=== PATIENT | male | born 1990 | race Caucasian/White ===

== ENCOUNTER 2021-06-25 07:34 | Outpatient (CLI) | payer OTHER, SELFPAY ==
--- NOTE | 2021-06-25 16:10 | WPDMETH ---
Methacholine Procedure Perform Procedure Performed Methacholine Challenge Methacholine Challenge This is a methacholine challenge test. The test was performed and interpreted in accordance with the 1999 [place] [employer] guidelines. The test was performed with increasing doses of nebulized methacholine using a 2 minute tidal breathing protocol. The best post-methacholine FEV1 values were used to calculate the change from the post diluent FEV1. Findings: Baseline FEV1 4.16 L, 94% predicted. Post diluent FEV1 4.20 L Post 0.025 mg/ml methacholine FEV1 4.28 L, increased 2% Post 0.25 mg/mL methacholine FEV1 4.26 L, increased 1% Post 2.5 mg/mL methacholine FEV1 4.20 L, decreased 0% Post 10 mg/mL methacholine FEV1 4.09 L, decreased 3% Post 25 mg/mL methacholine FEV1 4.14 L, decreased 1% Post albuterol nebulization FEV1 4.20 L Impression: The PC20 is >25 mg/ml which is categorized as normal bronchial responsiveness. There are no prior methacholine challenge studies for comparison
== END 2021-06-25 07:35 | disposition home or self-care (01) ==
DX: J45.909 Unspecified asthma, uncomplicated (principal)
CPT/HCPCS: 94070; J7674